=== PATIENT | female | born 1950 | race Caucasian/White ===

== ENCOUNTER 2016-11-06 05:02 | Emergency (ER) | payer OTHER, BC ==
[~2016-11-06] VITALS: Ht 177.8 cm; Wt 66.0 kg
[~2016-11-06 05:02] MED LIST: BENICAR20 MG; LEVOTHYROXINE100 MCG; LOSARTAN POTASS25 MG PO; SYNTHROID88 MCG PO
[2016-11-06 05:34] LABS: HEMATOCRIT 41.9 % (36.0-46.0); MCH 30.4 PG (29.0-34.0); MCHC 34.4 G/DL (30.0-36.0); MCV 88.6 FL (83-99); MEAN PLAT.VOLUME 9.8 uM^3 (9.5-12.4); PLATELET COUNT 226 K/uL (156-360); RBC DIS.WIDTH-CV 12.5 % (11.8-14.6); RBC DIS.WIDTH-SD 39.7 % (39-53); RED BLOOD COUNT 4.73 M/uL (3.80-5.20)
[2016-11-06 05:42] LABS: CHLORIDE 104 mEq/L (99-109); SODIUM 139 mEq/L (136-147)
[2016-11-06 05:43] LABS: GLUCOSE 90 mg/dL (70-99)
[2016-11-06 05:45] LABS: ANION GAP 8 MEQ/L (2-14)
[2016-11-06 05:47] LABS: GFR ESTIMATE (CALCULATED) > 59 mL/min/
[2016-11-06 05:48] LABS: UREA NITROGEN (BUN) 21 mg/dL (9-23)
[2016-11-06 05:54] LABS: TROP-I INTERPRETATION NEGATIVE; TROPONIN-I < 0.01 ng/mL (0.0-0.30)
[2016-11-06 08:57] LABS: TROP-I INTERPRETATION NEGATIVE; TROPONIN-I < 0.01 ng/mL (0.0-0.30)
[2016-11-06 10:06] VITALS: BP 118/74
== END 2016-11-06 10:07 | disposition home or self-care (01) ==
LOC: EME 05:02
PROVIDERS: Emergency Medicine
DX: R07.89 Other chest pain (principal); R05 Cough; I10 Essential (primary) hypertension
CPT/HCPCS: 71020; 80048; 84484; 85027; 93005; 99281; 99285